=== PATIENT | female | born 1985 | race American Indian/Alaskan Native ===

== ENCOUNTER 2019-04-04 01:05 | Emergency (ER) | payer MEDICAID ==
--- NOTE | 2019-04-04 03:31 | Emergency Department Report ---
ED Female HPI - General Chief complaint: Abdominal Pain Stated complaint: BENTON GREEN URINE, DEHYDRATED, LOWER BACK PAIN Time Seen by Provider: 04/04/19 03:25 Source: patient Mode of arrival: Ambulatory Limitations: No Limitations - History of Present Illness Initial comments: This is a 33-year-old female here for low back pain and lower abdominal pain and reports that her urine had low white green 2 days but not today. She says she is 8 weeks and and she has care with her [employer]RY CONTROL TENDER. She reports that she feels dehydrated. Denies any vomiting or nausea. Denies any urinary burning, frequency or urgency. She reports that she has a bad odor coming from her vaginal area and she gets the BV a lot and her [employer] CONTR[employer] TENDER always benito but they never find anything but she is concerned. She is not concerned for any STDs. Denies any fever or chills. Denies any shortness of breath or chest pain. MD Complaint: pelvic pain, other (vaginal odor lower back pain) Onset/Timin -: days(s) Location: suprapubic Radiation: non-radiating Severity: moderate Severity scale (0 -10): 5 Quality: cramping Consistency: intermittent Improves with: none Worsens with: none Are you Now?: Yes (8 weeks) Last Menstrual Period: 02/08/19 EDC: 11/15/19 Associated Symptoms: abdominal pain, other (report nondalton green urine for 2 days). denies: vaginal bleeding, nausea/vomiting, fever/chills, headaches, loss of appetite, dysuria, hematuria, rash, seizure, shortness of breath, syncope, weakness - Related Data Sexually active: Yes Allergies Allergy/AdvReac Type Severity Reaction Status Date / Time No Known Allergies Allergy Unverified 04/04/19 02:52 ED Review of Systems ROS: Stated complaint: BENTON GREEN URINE, DEHYDRATED, LOWER BACK PAIN Other details as noted in HPI Constitutional: denies: chills, fever ENT: denies: throat pain, congestion Respiratory: denies: cough, shortness of breath, wheezing Cardiovascular: denies: chest pain, palpitations, dyspnea on exertion, edema, syncope Gastrointestinal: abdominal pain. denies: nausea, vomiting, diarrhea, constipation, hematemesis, hematochezia Genitourinary: other (greenish color urine 2 days but none today with foul- smelling vaginal odor). denies: dysuria, discharge Musculoskeletal: back pain. denies: joint swelling, arthralgia, myalgia Skin: denies: rash Neurological: denies: headache ED Past Medical Hx - Past Medical History Previous Medical History?: No - Surgical History Past Surgical History?: No - Family History Family history: hypertension - Social History Smoking Status: Never Smoker Substance Use Type: None ED Physical Exam - General Limitations: No Limitations General appearance: alert, in no apparent distress - Head Head exam: Present: atraumatic, normocephalic, normal inspection - Eye Eye exam: Present: normal appearance, PERRL, EOMI - ENT ENT exam: Present: normal orophraynx, mucous membranes dry, TM's normal bilaterally, normal external ear exam - Neck Neck exam: Present: normal inspection, full ROM. Absent: tenderness - Respiratory Respiratory exam: Present: normal lung sounds bilaterally. Absent: respiratory distress, chest wall tenderness - Cardiovascular Cardiovascular Exam: Present: regular rate, normal rhythm, normal heart sounds - GI/Abdominal GI/Abdominal exam: Present: soft, normal bowel sounds. Absent: distended, tenderness, guarding, rebound, rigid, organomegaly - External exam: Present: normal external exam. Absent: erythema, swelling, lesions, lacerations, ecchymosis, bleeding ED Course Vital Signs 04/04/19 01:22 Temperature 98.5 F Pulse Rate 89 Respiratory 14 Rate Blood Pressure 140/80 O2 Sat by Pulse 100 Oximetry Vital Signs 04/04/19 01:22 Temperature 98.5 F Pulse Rate 89 Respiratory 14 Rate Blood Pressure 140/80 O2 Sat by Pulse 100 Oximetry Vital Signs 04/04/19 04/04/19 01:22 06:54 Temperature 98.5 F Pulse Rate 89 88 Respiratory 14 16 Rate Blood Pressure 140/80 Blood Pressure 125/79 [Right] O2 Sat by Pulse 100 100 Oximetry - Reevaluation(s) Reevaluation #1: 04/04/19 06:54 Patient remained stable throughout ED course. Vital signs stable she is afebrile and received IV fluids 1 L and tolerated well. She says she is feeling much better. No abdominal or back pain at present. ED Medical Decision Making - Lab Data Result diagrams: 04/04/19 03:00 Lab Results 04/04/19 04/04/19 04/04/19 Range/Units 02:53 02:53 03:00 WBC 11.6 H (4.5-11.0) K/mm3 RBC 4.30 (3.65-5.03) M/mm3 Hgb 13.4 (10.1-14.3) gm/dl Hct 39.8 (30.3-42.9) % MCV 93 (79-97) fl MCH 31 (28-32) pg MCHC 34 (30-34) % RDW 13.9 (13.2-15.2) % Plt Count 254 (140-440) K/mm3 Lymph % (Auto) 15.4 (13.4-35.0) % [place] % (Auto) 8.2 H (0.0-7.3) % Eos % (Auto) 1.6 (0.0-4.3) % Baso % (Auto) 0.4 (0.0-1.8) % Lymph # 1.8 (1.2-5.4) K/mm3 [place] # 1.0 H (0.0-0.8) K/mm3 Eos # 0.2 (0.0-0.4) K/mm3 Baso # 0.0 (0.0-0.1) K/mm3 Seg Neutrophils % 74.4 H (40.0-70.0) % Seg Neutrophils # 8.6 H (1.8-7.7) K/mm3 HCG, Quant (0-4) mIU/mL Urine Color Yellow (Yellow) Urine Turbidity Clear (Clear) Urine pH 5.0 (5.0-7.0) Ur Specific [place] 1.031 H (1.003-1.030) Urine Protein <15 mg/dl (Negative) mg/dL Urine Glucose (UA) Neg (Negative) mg/dL Urine Ketones Neg (Negative) mg/dL Urine Blood Neg (Negative) Urine Nitrite Neg (Negative) Urine Bilirubin Neg (Negative) Urine Urobilinogen < 2.0 (<2.0) mg/dL Ur Leukocyte Esterase Neg (Negative) Urine WBC (Auto) < 1.0 (0.0-6.0) /HPF Urine RBC (Auto) 3.0 (0.0-6.0) /HPF U Epithel Cells (Auto) 2.0 (0-13.0) /HPF Urine Bacteria (Auto) 1+ (Negative) /HPF Hyaline Casts 1 /LPF Urine Mucus Few /HPF Urine HCG, Qual Positive A (Negative) Blood Type 04/04/19 04/04/19 Range/Units 03:00 03:00 WBC (4.5-11.0) K/mm3 RBC (3.65-5.03) M/mm3 Hgb (10.1-14.3) gm/dl Hct (30.3-42.9) % MCV (79-97) fl MCH (28-32) pg MCHC (30-34) % RDW (13.2-15.2) % Plt Count (140-440) K/mm3 Lymph % (Auto) (13.4-35.0) % [place] % (Auto) (0.0-7.3) % Eos % (Auto) (0.0-4.3) % Baso % (Auto) (0.0-1.8) % Lymph # (1.2-5.4) K/mm3 [place] # (0.0-0.8) K/mm3 Eos # (0.0-0.4) K/mm3 Baso # (0.0-0.1) K/mm3 Seg Neutrophils % (40.0-70.0) % Seg Neutrophils # (1.8-7.7) K/mm3 HCG, Quant 36147 H (0-4) mIU/mL Urine Color (Yellow) Urine Turbidity (Clear) Urine pH (5.0-7.0) Ur Specific [place] (1.003-1.030) Urine Protein (Negative) mg/dL Urine Glucose (UA) (Negative) mg/dL Urine Ketones (Negative) mg/dL Urine Blood (Negative) Urine Nitrite (Negative) Urine Bilirubin (Negative) Urine Urobilinogen (<2.0) mg/dL Ur Leukocyte Esterase (Negative) Urine WBC (Auto) (0.0-6.0) /HPF Urine RBC (Auto) (0.0-6.0) /HPF U Epithel Cells (Auto) (0-13.0) /HPF Urine Bacteria (Auto) (Negative) /HPF Hyaline Casts /LPF Urine Mucus /HPF Urine HCG, Qual (Negative) Blood Type A POSITIVE Urine culture sent - Radiology Data Radiology results: report reviewed Ultrasound OB transabdominal and transvaginal dictated by etiologies and report reviewed by myself. Please see below for details Findings [facility] [address] [place] [address] Ultrasound Report Signed Patient: EL JORDAN MR#: [id number] : 1985 Acct:[id number] Age/Sex: 33 / F ADM Date: 04/04/19 Loc: ED Attending Dr: Ordering Physician: DAVID ESPINOSA Date of Service: 04/04/19 Procedure(s): US OB transvaginal Accession Number(s): [id number] cc: DAVID ESPINOSA ULTRASOUND OBSTETRIC INDICATION / CLINICAL INFORMATION: with vaginal bleeding and abdominal pain. Clinical Gestational Age (GA): 17 weeks 6 days TECHNIQUE: Transabdominal and Transvaginal. COMPARISON: None available. FINDINGS: GESTATIONAL SAC: Well-defined oval shape and intrauterine in location. YOLK SAC: No significant abnormality. EMBRYO/FETUS: No significant abnormality. - [place]-Rump Length = 1.1 cm = 7 weeks, 2 day(s). - Heart Rate, beats per minute (if present) = 173 ADNEXA: No significant abnormality. FREE FLUID: None. ADDITIONAL FINDINGS: Anterior uterine body fibroid measuring 3.1 x 2.6 x 2.7 cm. IMPRESSION: 1. Single, living intrauterine with estimated sonographic age of 7 weeks, 2 day(s). 2. No acute sonographic abnormality. 3. 3.1 cm anterior uterine body fibroid. Signer Name: Jo Burnette MD Signed: 04/04/2019 5:41 AM Workstation Name: [id number] Transcribed By: DT Dictated By: Andres Burnette MD Electronically Authenticated By: Andres Burnette MD Signed Date/Time: 04/04/19 0541 DD/ 0539 TD/TT: - Medical Decision Making Patient here complaining of the abdominal pain to her lower pelvic area at 8 weeks with lower back pain and nondalton green urine 2 days. She had no other symptoms and her exam was normal. Patient had wet prep done which was negative for BV as this was a concern of hers, negative for yeast or Trichomonas. Gonorrhea and Chlamydia sent the patient said that she will wait because she is not concerned about having gonorrhea or chlamydia. She remembers stable throughout ED course. Her CBC and chemistries normal urine positive and quantitative hCG is stable and correlates well with ultrasound which shows no abnormality and single live intrauterine with heart tone at 173 bpm. Patient urine shows that she has some dehydration and 1+ bacteria but she is not having any urinary symptoms I gave her 1 L of normal saline and she says she feels a lot better and I discussed with her that I will send her urine out for culture and that she also needs to follow up with her [employer] TENDER on Saturday to let them know that she was in the emergency room. I told her she wants to have her results from her gonorrhea and chlamydia and urine culture to have her [employer] T[employer]ER request this and she will have to sign for this or she can return to the medical records department with her ID to get results and she voiced understanding. Patient is stable and discharged home in stable condition. All lab work and ultrasound results discussed with her - Differential Diagnosis ectopic , urinary tract infection, dehydration, abd pain in preg Critical care attestation.: If time is entered above; I have spent that time in minutes in the direct care of this critically ill patient, excluding procedure time. ED Disposition Clinical Impression: Back pain during Abdominal pain during Qualifiers: Trimester: first trimester Qualified Code(s): O26.891 - Other specified related conditions, first trimester Disposition: - TO HOME OR SELFCARE Is pt being admited?: No Does the pt Need Aspirin: No Condition: Stable Instructions: Abdominal Pain (ED), Abdominal Pain in (ED), Back Pain (ED) Additional Instructions: Please follow up with the [employer]URRY CONTROL TENDER and call on Saturday to schedule an appointment for follow-up visit. Please bring your CD of ultrasound Ensure you get plenty of fluids to keep hydrated. Rest for 3 days and avoid sexual activity until you are evaluated by [employer] T[employer]ER If your condition worsens, return to the closest emergency room otherwise follow-up with [employer] T[employer]ER Referrals: MARIYA AYALA DO [Primary Care Provider] - 04/06/19 JOCELYN ANGULO JR, MD [Staff Physician] - 04/06/19 Forms: AMA Form, Work/School Release Form(ED)
[2019-04-04 03:41] LABS: Basophils % (Auto) 0.4 % (0.0-1.8); Eosinophils # (Auto) 0.2 K/mm3 (0.0-0.4); Eosinophils % (Auto) 1.6 % (0.0-4.3); Hematocrit 39.8 % (30.3-42.9); Hemoglobin 13.4 gm/dl (10.1-14.3); Lymphocytes # (Auto) 1.8 K/mm3 (1.2-5.4); Lymphocytes % (Auto) 15.4 % (13.4-35.0); Mean Corpuscular HGB Conc 34 % (30-34); Mean Corpuscular Volume 93 fl (79-97); Monocytes % (Auto) 8.2 % (0.0-7.3); Platelet Count 254 K/mm3 (140-440); Red Cell Distribution Width 13.9 % (13.2-15.2)
[2019-04-04 03:56] LABS: Bacteria,Urine 1+ /HPF (Negative); Bilirubin,Urine NEG (Negative); Blood,Urine NEG (Negative); Color,Urine Yellow (Yellow); Hyaline Casts,Urine 1 /LPF; Mucus,Urine FEW /HPF; Protein,Urine <15 mg/dL mg/dL (Negative); Urobilinogen,Urine < 2.0 mg/dL (<2.0); WBC,Urine < 1.0 /HPF (0.0-6.0)
[2019-04-04 03:57] LABS: HCG Qualitative,Urine Positive (Negative)
[2019-04-04] MEDS ORDERED: SODIUM CHLORIDE 0.9% 1000 ML 1,000 ML IV ONE (04:04)
--- NOTE | 2019-04-04 05:45 | Ultrasound Report ---
ULTRASOUND OBSTETRIC INDICATION / CLINICAL INFORMATION: with vaginal bleeding and abdominal pain. Clinical Gestational Age (GA): 17 weeks 6 days TECHNIQUE: Transabdominal and Transvaginal. COMPARISON: None available. FINDINGS: GESTATIONAL SAC: Well-defined oval shape and intrauterine in location. YOLK SAC: No significant abnormality. EMBRYO/FETUS: No significant abnormality. - [place]-Rump Length = 1.1 cm = 7 weeks, 2 day(s). - Heart Rate, beats per minute (if present) = 173 ADNEXA: No significant abnormality. FREE FLUID: None. ADDITIONAL FINDINGS: Anterior uterine body fibroid measuring 3.1 x 2.6 x 2.7 cm. IMPRESSION: 1. Single, living intrauterine with estimated sonographic age of 7 weeks, 2 day(s). 2. No acute sonographic abnormality. 3. 3.1 cm anterior uterine body fibroid. Signer Name: Jo Burnette MD Signed: 04/04/2019 5:41 AM Workstation Name: [id number]
--- NOTE | 2019-04-04 05:45 | Ultrasound Report ---
ULTRASOUND OBSTETRIC INDICATION / CLINICAL INFORMATION: with vaginal bleeding and abdominal pain. Clinical Gestational Age (GA): 17 weeks 6 days TECHNIQUE: Transabdominal and Transvaginal. COMPARISON: None available. FINDINGS: GESTATIONAL SAC: Well-defined oval shape and intrauterine in location. YOLK SAC: No significant abnormality. EMBRYO/FETUS: No significant abnormality. - [place]-Rump Length = 1.1 cm = 7 weeks, 2 day(s). - Heart Rate, beats per minute (if present) = 173 ADNEXA: No significant abnormality. FREE FLUID: None. ADDITIONAL FINDINGS: Anterior uterine body fibroid measuring 3.1 x 2.6 x 2.7 cm. IMPRESSION: 1. Single, living intrauterine with estimated sonographic age of 7 weeks, 2 day(s). 2. No acute sonographic abnormality. 3. 3.1 cm anterior uterine body fibroid. Signer Name: Jo Burnette MD Signed: 04/04/2019 5:41 AM Workstation Name: [id number]
[2019-04-04 06:55] VITALS: BP 125/79
== END 2019-04-04 06:55 | disposition home or self-care (01) ==
LOC: ED 01:05
DX: O26.891 Other specified pregnancy related conditions, first trimester (principal); M54.5 Low back pain; R10.2 Pelvic and perineal pain; O99.281 Endocrine, nutritional and metabolic diseases complicating pregnancy, first trimester; E86.0 Dehydration; Z3A.01 Less than 8 weeks gestation of pregnancy
CPT/HCPCS: 36415; 76801; 76817; 81001; 81025; 84702; 85025; 86900; 86901; 87086; 87210; 87591; 96360; 99284; J7030